=== PATIENT | female | born 1945 | race Two or more races ===

== ENCOUNTER 2017-10-06 08:14 | Outpatient (CLI) | payer OTHER ==
[~2017-10-06 08:14] MED LIST: ALEVE220 M1 PO; CEFADROXIL500 MG PO; PERCOCET 5/3251 TAB PO
== END 2017-10-06 08:19 | disposition home or self-care (01) ==
LOC: MAMO-SONO 08:14
DX: C50.412 Malignant neoplasm of upper-outer quadrant of left female breast (principal)

== ENCOUNTER 2017-10-10 10:36 | Outpatient (CLI) | payer OTHER | END 2017-10-10 10:43 | disposition home or self-care (01) | LOC: NUCLEAR 10:36 | DX: M81.0 Age-related osteoporosis without current pathological fracture (principal) ==

== ENCOUNTER 2018-10-20 08:34 | Outpatient (CLI) | payer OTHER | END 2018-10-20 15:35 | disposition home or self-care (01) | LOC: MAMO-SONO 08:34 | DX: C50.911 Malignant neoplasm of unspecified site of right female breast (principal) ==

== ENCOUNTER → 2019-10-06 | Outpatient (CLI) | payer OTHER | END | disposition home or self-care (01) | LOC: RAD 10:27 | DX: M12.851 Other specific arthropathies, not elsewhere classified, right hip (principal) ==

== ENCOUNTER 2019-10-22 09:22 | Outpatient (CLI) | payer OTHER | END 2019-10-22 10:28 | disposition home or self-care (01) | LOC: MAMO-SONO 09:22 | DX: C50.812 Malignant neoplasm of overlapping sites of left female breast (principal); C50.811 Malignant neoplasm of overlapping sites of right female breast ==

== ENCOUNTER 2020-10-24 07:48 | Outpatient (CLI) | payer OTHER | END 2020-10-24 07:59 | disposition HB | LOC: MAMO-SONO 07:48 | PROVIDERS: ATTEND Internal Medicine Cardiovascular Disease | DX: N60.01 Solitary cyst of right breast (principal); N64.59 Other signs and symptoms in breast ==

== ENCOUNTER 2020-11-14 08:28 | Outpatient (CLI) | payer OTHER | END 2020-11-14 08:40 | disposition home or self-care (01) | LOC: SONOGRAMA 08:28 → MAMO-SONO 08:45 | PROVIDERS: ATTEND Internal Medicine Cardiovascular Disease | DX: R10.9 Unspecified abdominal pain (principal) ==

== ENCOUNTER 2021-04-02 07:08 | Outpatient (CLI) | payer OTHER | END 2021-04-02 07:15 | disposition home or self-care (01) | LOC: RAD 07:08 | PROVIDERS: ATTEND Ophthalmology | DX: I10 Essential (primary) hypertension (principal) ==

== ENCOUNTER → 2021-04-06 06:39 | Outpatient (CLI) | payer OTHER | END | disposition home or self-care (01) | LOC: LAB 06:39 | PROVIDERS: ATTEND Ophthalmology | DX: D68.8 Other specified coagulation defects (principal); H25.011 Cortical age-related cataract, right eye ==

== ENCOUNTER 2021-06-30 07:27 | Outpatient (CLI) | payer OTHER | END 2021-06-30 07:32 | disposition home or self-care (01) | LOC: LAB 07:27 | PROVIDERS: ATTEND Ophthalmology | DX: D68.8 Other specified coagulation defects (principal); H25.012 Cortical age-related cataract, left eye ==

== ENCOUNTER 2021-10-24 08:03 | Outpatient (CLI) | payer OTHER | END 2021-10-24 08:11 | disposition home or self-care (01) | LOC: RAD 08:03 | PROVIDERS: ATTEND Internal Medicine Cardiovascular Disease | DX: M12.9 Arthropathy, unspecified (principal) ==

== ENCOUNTER 2021-11-01 07:48 | Outpatient (CLI) | payer OTHER | END 2021-11-01 07:53 | disposition home or self-care (01) | LOC: MAMO-SONO 07:48 | PROVIDERS: ATTEND Specialist | DX: C50.412 Malignant neoplasm of upper-outer quadrant of left female breast (principal) ==

== ENCOUNTER 2022-10-17 10:47 | Outpatient (CLI) | payer OTHER | END 2022-10-17 10:56 | disposition home or self-care (01) | LOC: RAD 10:47 | PROVIDERS: ATTEND Internal Medicine Cardiovascular Disease | DX: M12.9 Arthropathy, unspecified (principal) ==

== ENCOUNTER 2022-11-05 08:19 | Outpatient (CLI) | payer OTHER | END 2022-11-05 08:22 | disposition home or self-care (01) | LOC: SONOGRAMA 08:19 | PROVIDERS: ATTEND Internal Medicine Cardiovascular Disease | DX: M12.9 Arthropathy, unspecified (principal) ==

== ENCOUNTER 2022-11-14 08:13 | Outpatient (CLI) | payer OTHER | END 2022-11-14 08:19 | disposition home or self-care (01) | LOC: MAMO-SONO 08:13 | PROVIDERS: ATTEND Specialist | DX: C50.412 Malignant neoplasm of upper-outer quadrant of left female breast (principal); Z90.12 Acquired absence of left breast and nipple ==

== ENCOUNTER 2023-11-19 07:47 | Outpatient (CLI) | payer OTHER | END 2023-11-19 07:53 | disposition home or self-care (01) | LOC: MAMO-SONO 07:47 | PROVIDERS: ATTEND Specialist | DX: Z90.12 Acquired absence of left breast and nipple (principal); Z85.3 Personal history of malignant neoplasm of breast ==

== ENCOUNTER 2024-11-22 08:48 | Outpatient (CLI) | payer OTHER | END 2024-11-22 08:52 | disposition home or self-care (01) | LOC: MAMO-SONO 08:48 | PROVIDERS: ATTEND Specialist | DX: Z90.12 Acquired absence of left breast and nipple (principal); Z85.3 Personal history of malignant neoplasm of breast ==

== ENCOUNTER 2025-03-08 07:27 | Outpatient (CLI) | payer OTHER | END 2025-03-08 07:28 | disposition home or self-care (01) | LOC: NUCLEAR 07:27 | PROVIDERS: ATTEND Internal Medicine Cardiovascular Disease | DX: I10 Essential (primary) hypertension (principal); R07.9 Chest pain, unspecified ==

== ENCOUNTER 2025-06-09 08:03 | Outpatient (CLI) | payer OTHER | END 2025-06-09 08:09 | disposition home or self-care (01) | LOC: MRI 08:03 | PROVIDERS: ATTEND Internal Medicine Cardiovascular Disease | DX: M12.9 Arthropathy, unspecified (principal) | CPT/HCPCS: 73721 ==